=== PATIENT | female | born 1985 | race Caucasian/White ===

== ENCOUNTER 2025-07-23 11:07 | Emergency (ER) | payer OTHER, SELFPAY ==
[2025-07-23 11:25] VITALS: BP 124/90
[2025-07-23] MEDS: ZOFRAN ODT (ORALLY DISINTEGRATING) 4 MG PO (11:38)
[2025-07-23 12:06] LABS: Hematocrit 33.5 % (37.0-47.0); Hemoglobin 11.6 g/dL (12.0-16.0); Mean Corp Hgb Conc. 34.6 g/dL (33.0-37.0); Mean Corpuscular Volume 87.9 fL (81.0-99.0); Nucleated Red Blood Cells % 0 %; Platelet Count 292 10^3/uL (130-400); Red Cell Dist. Width 11.9 % (11.5-14.5)
[2025-07-23 12:24] LABS: Urine Character Slightly Cloudy (Clear)
[2025-07-23 12:43] LABS: Urine Squamous Cell >30 /LPF (Few)
[2025-07-23 12:52] LABS: ALT (SGPT) 16 U/L (0-35); AST (SGOT) 18 U/L (14-36); Albumin 4.3 g/dl (3.5-5.0); Alkaline Phosphatase 71 U/L (38-126); Blood Urea Nitrogen 14 mg/dl (7-17); Calcium 9.5 mg/dl (8.4-10.2); Carbon Dioxide 22 mmol/L (22-30); Chloride 103 mmol/L (98-107); Glucose 109 mg/dl (70-99); Potassium 4.3 mmol/L (3.5-5.1); Sodium 133 mmol/L (135-145); Total Protein 7.2 g/dl (6.3-8.2); eGFR > 60.00
[2025-07-23 13:07] LABS: HCG, Serum Qualitative Screen Negative
--- NOTE | 2025-07-23 13:58 | ED.GENMED ---
History of Present Illness
<Keith Chavez Jr., PA-C - Last Filed: 07/25/25 02:04>
General
Chief Complaint: Flank Pain
Source: patient
Exam Limitations: none
Time Seen by Provider: 07/23/25 13:18
Nursing documentation reviewed up to this point in time: agreed with
History of Present Illness
History of Present Illness:
40-year-old female past medical history of hypertension kidney stones presenting to the emergency department today with concerns of right-sided flank pain she claims that she had a 6 mm stone 1 month ago at [facility] was asymptomatic over the past
few weeks did follow-up with Dr. Lopez yesterday was asymptomatic at the time. She noticed recurrence of symptoms last night roughly 12 hours prior to arrival to the emergency department. She had associated significant nausea vomiting and pain
mainly to the right lower portion of the abdomen and right flank pain.
Review of Systems
<Keith Chavez Jr., PA-C - Last Filed: 07/25/25 02:04>
Review of Systems
Allergies reviewed?: Yes
All Other Systems: ROS reviewed and negative except as documented in HPI and ROS
Phy Exam
<Keith Chavez Jr., PA-C - Last Filed: 07/25/25 02:04>
Physical Exam
Physical Exam:
GENERAL: Alert , in no apparent distress
EYE: pupils equal and reactive
NECK: Supple, no significant adenopathy.
ENT: o/p clr, mmm.
CARDIAC: Regular rate and rhythm .
LUNGS: Clear breath sounds bilaterally, no acute respiratory distress, no wheezes/rales/rhonchi
ABDOMEN: Soft, without focal tenderness, no r/g, no cvat
NEUROLOGICAL: Alert and oriented, no focal neuro deficits
SKIN: Warm and dry, skin intact.
MUSCULOSKELETAL: No edema, well perfused.
PSYCH: Normal and appropriate interaction.
Course
<Keith Chavez Jr., PA-C - Last Filed: 07/25/25 02:04>
Orders/Labs/Results
Orders:
Orders
07/23/25 11:34
Add On- LAB Urgent
Tests Added?: hcg qual serum
Ondansetron Injectable [Zofran] 4 mg IV NOW STA
07/23/25 11:36
Ondansetron Orally Disint [Zofran Odt (Orally Disintegrating)] 4 mg .ROUTE .STK-MED ONE
07/23/25 11:37
Ondansetron Orally Disint [Zofran Odt (Orally Disintegrating)] 4 mg PO NOW STA
07/23/25 11:52
Complete Blood Count/With Diff Urgent
Comprehensive Metabolic Panel Urgent
HCG, Serum Qualitative Screen Urgent
Comment: ADD ON
Urinalysis Reflex To Culture Urgent
Date Specimen was Collected: 07/23/25
Time Specimen was Collected: 11:28
Urine Microscopic Reflex Cult Urgent
Urine Culture Urgent
TRACY Source: U
Specimen Description:
Obtained by: Random
Date Specimen was Collected: 07/23/25
Time Specimen was Collected: 11:28
07/23/25 13:54
CT Abd/pel Without Iv Or Oral Urgent
Comment:
Reason For Exam: right sided lower abdominal pain
07/23/25 13:55
0.9% Sodium Chloride 1000 ml [Nss] 1,000 ml IV BOLUS
Ketorolac [Toradol] 15 mg IV NOW STA
07/23/25 16:21
HYDROmorphone [Dilaudid] 0.5 mg IV NOW STA
07/23/25 17:12
Add On - Microbiology Urgent
Tests Added?: urine culture
Abnormal Lab Results
07/23/25
11:52
WBC 14.6 H 10^3/uL
(4.8-10.8)
RBC 3.81 L 10^6/uL
(4.20-5.40)
Hgb 11.6 L g/dL
(12.0-16.0)
Hct 33.5 L %
(37.0-47.0)
Absolute Neuts (auto) 12.1 H 10^3/uL
(1.4-6.5)
Absolute Monos (auto) 0.9 H 10^3/uL
(0.1-0.6)
Neutrophils % 83.3 H %
(42.2-75.2)
Lymphocytes % 10.0 L %
(20.5-51.1)
Sodium 133 L mmol/L
(135-145)
Glucose 109 H mg/dl
(70-99)
Urine Ketones 3+ A
(Negative)
Ur Occult Blood Reflex 2+ A
(Negative)
Leukocyte Esterase Rfl 1+ A
(Negative)
Urine RBC 7-10 A /HPF
(0-2)
Urine Bacteria (Reflex) Few A
(Negative)
Urine Albumin (Reflex) 2+ A
(Neg - Trace)
07/23/25 11:52
07/23/25 11:52
Vital Signs
Initial and Last Documented VS:
Initial Vital Signs
Pulse Resp BP Pulse Ox
87 18 124/90 98
07/23/25 11:25 07/23/25 11:25 07/23/25 11:25 07/23/25 11:25
Last Documented Vital Signs
Pulse Resp BP Pulse Ox
87 18 124/90 98
07/23/25 11:25 07/23/25 11:25 07/23/25 11:25 07/23/25 14:00
<Beverly Balderas PA-C - Last Filed: 07/23/25 23:33>
Orders/Labs/Results
Orders:
Orders
07/23/25 11:34
Add On- LAB Urgent
Tests Added?: hcg qual serum
Ondansetron Injectable [Zofran] 4 mg IV NOW STA
07/23/25 11:36
Ondansetron Orally Disint [Zofran Odt (Orally Disintegrating)] 4 mg .ROUTE .STK-MED ONE
07/23/25 11:37
Ondansetron Orally Disint [Zofran Odt (Orally Disintegrating)] 4 mg PO NOW STA
07/23/25 11:52
Complete Blood Count/With Diff Urgent
Comprehensive Metabolic Panel Urgent
HCG, Serum Qualitative Screen Urgent
Comment: ADD ON
Urinalysis Reflex To Culture Urgent
Date Specimen was Collected: 07/23/25
Time Specimen was Collected: 11:28
Urine Microscopic Reflex Cult Urgent
Urine Culture Urgent
TRACY Source: U
Specimen Description:
Obtained by: Random
Date Specimen was Collected: 07/23/25
Time Specimen was Collected: 11:28
07/23/25 13:54
CT Abd/pel Without Iv Or Oral Urgent
Comment:
Reason For Exam: right sided lower abdominal pain
07/23/25 13:55
0.9% Sodium Chloride 1000 ml [Nss] 1,000 ml IV BOLUS
Ketorolac [Toradol] 15 mg IV NOW STA
07/23/25 16:21
HYDROmorphone [Dilaudid] 0.5 mg IV NOW STA
07/23/25 17:12
Add On - Microbiology Urgent
Tests Added?: urine culture
Abnormal Lab Results
07/23/25
11:52
WBC 14.6 H 10^3/uL
(4.8-10.8)
RBC 3.81 L 10^6/uL
(4.20-5.40)
Hgb 11.6 L g/dL
(12.0-16.0)
Hct 33.5 L %
(37.0-47.0)
Absolute Neuts (auto) 12.1 H 10^3/uL
(1.4-6.5)
Absolute Monos (auto) 0.9 H 10^3/uL
(0.1-0.6)
Neutrophils % 83.3 H %
(42.2-75.2)
Lymphocytes % 10.0 L %
(20.5-51.1)
Sodium 133 L mmol/L
(135-145)
Glucose 109 H mg/dl
(70-99)
Urine Ketones 3+ A
(Negative)
Ur Occult Blood Reflex 2+ A
(Negative)
Leukocyte Esterase Rfl 1+ A
(Negative)
Urine RBC 7-10 A /HPF
(0-2)
Urine Bacteria (Reflex) Few A
(Negative)
Urine Albumin (Reflex) 2+ A
(Neg - Trace)
07/23/25 11:52
07/23/25 11:52
Vital Signs
Initial and Last Documented VS:
Initial Vital Signs
Pulse Resp BP Pulse Ox
87 18 124/90 98
07/23/25 11:25 07/23/25 11:25 07/23/25 11:25 07/23/25 11:25
Last Documented Vital Signs
Pulse Resp BP Pulse Ox
87 18 124/90 98
07/23/25 11:25 07/23/25 11:25 07/23/25 11:25 07/23/25 14:00
<Keith Chavez Jr., PA-C - Last Filed: 07/25/25 02:04>
MDM/Problems Addressed
MDM/Problems Addressed:
40-year-old female presenting to the emergency department with right-sided flank pain as well as associated nausea and vomiting and urinary frequency and urgency over the past 12 hours or so. On arrival vital signs are normal
<Keith Chavez Jr., PA-C - Last Filed: 07/25/25 02:04>
*Pulse Oximetry
SaO2: 98
Oxygen Mode of Delivery: Room air
<Beverly Balderas PA-C - Last Filed: 07/23/25 23:33>
*Pulse Oximetry
Patient hypoxic: no
*Critical Care Note
Total Time (30-74mins, 75-104mins- exclusive of procedures): Not Applicable
<Beverly Balderas PA-C - Last Filed: 07/23/25 23:33>
Update Note
Update Note:
Update: Assumed care of patient pending CT scan. CT reveals 8 mm stone at right UVJ as well as 7 mm nonobstructing right renal stone. Labs significant for a leukocytosis which I favor to be reactive. She is afebrile with otherwise no infectious
symptoms. Renal function normal. Urine without clear evidence of UTI. I did discuss case with patient's urologist, Dr. Lopez as she was initially scheduled to have his stone removed however given she had been asymptomatic - this was deferred.
Given no evidence of associated infection at this time and patient's pain well-managed in emergency department�she will be discharged with outpatient urology follow-up for likely procedure in the near future. She is already on Flomax. She has
Toradol and Percocet at home. Advised patient to stay well-hydrated and monitor closely for any signs of infection. Patient stable for discharge
ED Attending Note
<Keith Chavez Jr., PA-C - Last Filed: 07/25/25 02:04>
-
Portions of this chart may have been created with voice recognition software.� Occasional wrong word or��sound alike� substitutions may have occurred due to the inherent limitations of voice recognition software.
Discharge Plan
Departure
Patient Disposition: Home (Routine Discharge)
Date of Disposition: 07/23/25
Time of Disposition: 17:51
Patient with high blood pressure during this ER visit?: Yes
Condition: Good
Discharge Problem:
Calculus of ureterovesical junction (UVJ)
Instructions: Kidney Stones (DC), BLOOD PRESSURE
Prescriptions:
New
ondansetron 4 mg tablet,disintegrating
4 mg PO Q8H PRN (Reason: nausea and vomiting) Qty: 7 0RF
Referrals:
Catia Elaine MD [Family Provider, Family Practice]
Clarence Lopez MD [Active, Urology] - Next open appointment
Activity Restrictions/Additional Instructions:
RETURN TO THE EMERGENCY DEPARTMENT WITH ANY FEVER, CHILLS, INTRACTABLE NAUSEA/VOMITING, INTRACTABLE PAIN, INABILITY TO URINATE, WORSENING IN CURRENT SYMPTOMS, OR ANY OTHER CONCERNS
- As discussed�your CT scan showed an 8 mm stone at your right ureterovesicular junction.
- You can take 600 mg of ibuprofen every 6-8 hours as needed for pain. For more severe pain�you can take your Percocet as prescribed. This may cause drowsiness and you should not take prior to driving. I have sent a prescription for Zofran for
any nausea/vomiting.
- It is important to stay well-hydrated.
- Please follow-up with Dr. Lopez for further evaluation/management and to schedule procedure
Monitor your symptoms closely and return to the emergency department with any acute worsening/new symptoms or any signs of infection
Interventions
Interventions:
*Risk Screen - Suicide Last Done: 07/23/25 11:25
*General Assessment Last Done: 07/23/25 11:25
*Neglect/Abuse Screening Last Done: 07/23/25 14:46
*ED- Fall Risk Assessment Last Done: 07/23/25 14:46
*ED COVID-19 Vaccine History Last Done: 07/23/25 14:46
*Nursing Disposition Last Done: 07/23/25 18:08
DJ-Nsqkrz-Qvkmeocwjt Assessment Last Done: 07/23/25 14:46
ED-Female Genitourinary Assessment Last Done: 07/23/25 14:46
Discharge Date and Time
Discharge Date/Time: 07/23/25 18:09
Print Language: GUAMANIAN
[2025-07-23] MEDS: NSS 1000 IV (14:36)
[2025-07-23] MEDS: TORADOL 15 MG IV (14:37)
[2025-07-23] MEDS: DILAUDID 0.5 MG IV (16:43)
== END 2025-07-23 18:09 | disposition home or self-care (01) ==
LOC: EMR 11:07
PROVIDERS: Emergency Medicine; EMERGENCY PHYSICIAN Student in an Organized Health Care Education/Training Program; FAMILY PHYSICIAN Family Medicine
DX: N13.2 Hydronephrosis with renal and ureteral calculous obstruction (principal); D72.829 Elevated white blood cell count, unspecified; I10 Essential (primary) hypertension
CPT/HCPCS: 99284; 96374; 96375 ×2; 96361; 74176; 80053; 81003; 81015; 84703; 85025; 87086